=== PATIENT | female | born 1965 | race Two or more races ===

== ENCOUNTER 2021-08-30 22:58 | Emergency (ER) | payer MEDICAID, SELFPAY ==
--- NOTE | ~2021-08-30 | XR_ITS ---
EXAMINATION: XR CHEST CLINICAL INFORMATION: Right flank pain COMPARISON: 12.25.2018 TECHNIQUE: Frontal view of the chest was obtained. FINDINGS: Normal symmetric lung volumes. No parenchymal consolidation. No pleural effusion. No pneumothorax. Cardiomediastinal silhouette and pulmonary vascularity are within normal limits. No acute osseous abnormalities. XR/XR chest 1V IMPRESSION: Unremarkable examination.
[2021-08-30 23:27] VITALS: BP 179/64; PULSE 63; RESP 16; TEMP 36.6; O2SAT 98; BMI 26.4
--- NOTE | 2021-08-31 00:52 | ECG_ITS ---
Test Reason : BACK PAIN Blood Pressure : / mmHG Vent. Rate : 047 BPM Atrial Rate : 047 BPM P-R Int : 204 ms QRS Dur : 084 ms QT Int : 458 ms P-R-T Axes : 043 022 048 degrees QTc Int : 405 ms Sinus bradycardia first degree heart block Nonspecific T wave abnormality Abnormal ECG When compared with ECG of 04-SEP-2018 10:40, Nonspecific T wave abnormality now evident in Lateral leads Referred By: Maximilian Gibbons Electronically Signed By:SANJAY MCGUIRE
--- NOTE | 2021-08-31 00:53 | ED_ITS ---
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 Pain started 2 days ago, described as a dull aching pain localized to the right flank area pain described as constant moderate in severity 7/10, pain is worse with movement, no relieving factor, never had similar pain in the past, no other associated symptoms, no bloody urine, no frequency urination, no dysuria. Patient flew from [place] 2 days ago, decline lower extremity swelling or tenderness, no history of trauma or heavy lifting before the pain started. Related Data Allergies Allergy/AdvReac Type Severity Reaction Status Date / Time codeine [CODEINE] AdvReac Unknown TACHYCARDIA Unverified 08/11/21 14:38 Codeine Phosphate Allergy Unknown Uncoded 08/11/21 14:38 Review of Systems Review of Systems: All other systems are reviewed and are negative Constitutional: Reports as per HPI and Reports no additional constitutional complaints Eyes: Reports as per HPI and Reports no additional eye complaints Reports system reviewed and no additional complaints, except as documented Cardiovascular: Reports as per HPI and Reports no additional cardiovascular complaints Respiratory: Reports as per HPI and Reports no additional respiratory complaints Gastrointestinal: Reports as per HPI and Reports no additional gastrointestinal complaints Genitourinary: Reports no additional female genitourinary complaints Musculoskeletal: Reports no additional musculoskeletal complaints Skin/Breast: Reports system reviewed and no additional complaints, except as docu Psychiatric: Reports no additional psychiatric complaints Endocrine: Reports no additional endocrine complaints Hematologic/Lymphatic: Reports no additional hematologic/lymphatic complaints Allergic/Immunologic: Reports no additional allergic/immunologic complaints Reports system reviewed and no additional complaints, except as documented and Reports Abnormal speech present [facility] Social History Social History (System 08/11/21 @ 14:38 by Bernadette Holder) Advance Directives: No Advance Directives Information Provided: No Patient : No Physical Exam Vital Signs: Vital Signs: Last Vital Signs Temp 97.8 F 08/30/21 23:27 Pulse 63 08/30/21 23:27 Resp 16 08/30/21 23:27 BP 179/64 H 08/30/21 23:27 Pulse Ox 98 08/30/21 23:27 BMI result Body Mass Index 26.4 Vital signs have been reviewed as appeared to be correct. Blood pressure normal. Heart rate normal. Respiration rate normal. Temperature normal. Oxygen saturation normal. Appearance: Alert. Oriented X3. No acute distress. Head: Normal external exam. Normocephalic. Atraumatic. No Manning signs noted. No raccoon eyes noted Eyes: PERRLA. EOMI. Conjunctiva and sclera normal. Eyelids normal. ENT: TM's Normal. Pharynx normal. Uvula midline. Moist mucous membranes. No trismus noted. No drooling noted. No muffled voice noted. Neck: Normal inspection. Neck supple. FROM. No adenopathy. Thyroid Normal. No meningeal signs. No neck mass noted. CVS: Normal heart rate and rhythm. Heart sound normal. No murmurs noted. Pulses normal throughout. Respiratory: No respiratory distress. Painless inspiration. Breath sounds normal. No wheezes/rales/rhonchi noted. Chest nontender. No accessory muscle usage noted or decreased air movement noted. Abdomen: Soft and nontender. Bowel sounds normal in all 4 quadrants. No distention noted. No organomegaly noted. No visible injury noted. Back: No CVA tenderness. Full range of motion noted. Skin: Skin warm and dry. Normal skin color. Normal skin turgor. No rashes/ lesions/lacerations noted. Extremities: No lower extremity edema. Extremities exhibit normal range of motion. Extremities nontender. Neuro: Oriented X 3. Cranial nerve exam: II-XII are grossly intact No motor deficit. No sensory deficit. Reflexes normal. Course Course Course Narrative: Assessment and plan. 56-year-old female came in for evaluation for right flank pain, right-sided chest pain, patient had recent traveling from [place] 2 days ago then the pain started, however patient declined any lower extremity swelling or tenderness, EKG is unremarkable for acute ischemic change, labs including cardiac markers and D-dimer, UA are still pending, the case signed out to Dr. Guevara. Medical Decision Making Lab Data Result diagrams: 08/31/21 01:42 08/31/21 01:42 Labs: Lab Results 08/31/21 08/31/21 08/31/21 Range/Units 01:42 01:42 01:42 WBC 7.5 (4.8-10.8) X10*3/uL RBC 4.35 (4.20-5.50) X10*6/uL Hgb 12.5 (12.0-16.0) g/dl Hct 39.3 (37.0-47.0) % MCV 90.3 (80.0-98.0) fL MCH 28.7 (27.0-33.0) pg MCHC 31.8 (31.0-35.0) g/dl RDW 14.3 (11.0-16.0) % Plt Count 296 (160-400) X10*3/uL MPV 8.7 L (9.4-12.3) fL Immature Gran % (Auto) 0.1 (0.0-0.4) % Neut % (Auto) 47.9 (45-73) % Lymph % (Auto) 43.0 H (20-40) % [place] % (Auto) 6.8 (2-11) % Eos % (Auto) 1.9 (0-4) % Baso % (Auto) 0.3 (0-2) % Lymph # (Auto) 3.2 (1.2-4.9) X10*3/uL [place] # (Auto) 0.5 (0.1-1.2) X10*3/uL Eos # (Auto) 0.1 (0.0-0.4) X10*3/uL Baso # (Auto) 0.0 (0.0-0.2) X10*3/uL Abs Immat Gran (auto) 0.01 (0.00-0.03) X10*3/uL Absolute Neuts (auto) 3.6 (2.0-8.3) x10*3/uL Absolute Nucleated RBC 0.000 (0.0-0.012) X10*3/uL Nucleated RBC % (auto) 0.0 (0.0-0.2) /100WBC D-Dimer High Sensitivty 237 NG/ML Sodium 139 (135-145) mmol/L Potassium 3.7 (3.3-5.1) mmol/L Chloride 107 (96-108) mmol/L Carbon Dioxide 25 (22-29) mmol/L Anion Gap 11 L (12-20) BUN 12 (9-16) mg/dL Creatinine 0.82 (0.5-1.4) mg/dL Estim Creat Clear Calc 80.8 Estimated GFR > 60 Random Glucose 112 (60-115) mg/dL Calcium 9.3 (8.4-10.2) mg/dL Total Bilirubin 0.5 (0.0-1.0) mg/dL Direct Bilirubin 0.2 (0.0-0.5) mg/dL AST 17 (5-31) U/L ALT 21 (0-31) U/L Alkaline Phosphatase 72 (39-117) U/L Troponin I High Sens (<3.5-17.0) ng/L Total Protein 6.9 (6.5-8.0) g/dL Albumin 4.1 (3.5-5.0) g/dL Lipase 35 (8-78) U/L 08/31/21 Range/Units 01:42 WBC (4.8-10.8) X10*3/uL RBC (4.20-5.50) X10*6/uL Hgb (12.0-16.0) g/dl Hct (37.0-47.0) % MCV (80.0-98.0) fL MCH (27.0-33.0) pg MCHC (31.0-35.0) g/dl RDW (11.0-16.0) % Plt Count (160-400) X10*3/uL MPV (9.4-12.3) fL Immature Gran % (Auto) (0.0-0.4) % Neut % (Auto) (45-73) % Lymph % (Auto) (20-40) % [place] % (Auto) (2-11) % Eos % (Auto) (0-4) % Baso % (Auto) (0-2) % Lymph # (Auto) (1.2-4.9) X10*3/uL [place] # (Auto) (0.1-1.2) X10*3/uL Eos # (Auto) (0.0-0.4) X10*3/uL Baso # (Auto) (0.0-0.2) X10*3/uL Abs Immat Gran (auto) (0.00-0.03) X10*3/uL Absolute Neuts (auto) (2.0-8.3) x10*3/uL Absolute Nucleated RBC (0.0-0.012) X10*3/uL Nucleated RBC % (auto) (0.0-0.2) /100WBC D-Dimer High Sensitivty NG/ML Sodium (135-145) mmol/L Potassium (3.3-5.1) mmol/L Chloride (96-108) mmol/L Carbon Dioxide (22-29) mmol/L Anion Gap (12-20) BUN (9-16) mg/dL Creatinine (0.5-1.4) mg/dL Estim Creat Clear Calc Estimated GFR Random Glucose (60-115) mg/dL Calcium (8.4-10.2) mg/dL Total Bilirubin (0.0-1.0) mg/dL Direct Bilirubin (0.0-0.5) mg/dL AST (5-31) U/L ALT (0-31) U/L Alkaline Phosphatase (39-117) U/L Troponin I High Sens < 3.5 (<3.5-17.0) ng/L Total Protein (6.5-8.0) g/dL Albumin (3.5-5.0) g/dL Lipase (8-78) U/L ECG Data Attestation: I personally reviewed and interpreted this ECG as follows: Interpretation: Sinus bradycardia at 47 beats per minute, normal axis deviation, first-degree AV block, otherwise unremarkable intervals, nonspecific T-wave changes. Discharge Plan Discharge Clinical Impression: Muscle strain Patient Disposition: Home, Self-Care Instructions: Muscle Strain (ED), Musculoskeletal Pain (ED) Additional Instructions: 1. Recomendar el uso de Tylenol e ibuprofeno de venta nicki para controlar el dolor. 2. Seguimiento con mcconnell proveedor de atenci?n primaria el lunes por la ma?kevin para katt reevaluaci?n y manejo ambulatorio adicional. Regrese a la kenna de emergencias si los s?ntomas empeoran. Interventions: ED Discharge Assessment Last Done: 08/31/21 04:17 Discharge Date/Time: 08/31/21 04:17 Print Language: Surinamese
[2021-08-31 01:47] LABS: Basophils Percent Auto 0.3 % (0-2); Eosinophils Absolute Auto 0.1 X10*3/uL (0.0-0.4); Eosinophils Percent Auto 1.9 % (0-4); Hematocrit 39.3 % (37.0-47.0); Hemoglobin 12.5 g/dl (12.0-16.0); Imm Gran Abs Auto 0.01 X10*3/uL (0.00-0.03); Imm Gran Pct Auto 0.1 % (0.0-0.4); Lymphocytes Absolute Auto 3.2 X10*3/uL (1.2-4.9); MANUAL DIFF FLAG NO; Mean Corpuscular HGB Conc 31.8 g/dl (31.0-35.0); Mean Corpuscular Hemoglobin 28.7 pg (27.0-33.0); Mean Corpuscular Volume 90.3 fL (80.0-98.0); Mean Platelet Volume 8.7 fL (9.4-12.3); Monocytes Absolute Auto 0.5 X10*3/uL (0.1-1.2); Monocytes Percent Auto 6.8 % (2-11); Neutrophils Absolute Auto 3.6 x10*3/uL (2.0-8.3); Neutrophils Percent Auto 47.9 % (45-73); Platelet Count 296 X10*3/uL (160-400); Red Blood Count 4.35 X10*6/uL (4.20-5.50); Red Cell Distribution Width 14.3 % (11.0-16.0); White Blood Count 7.5 X10*3/uL (4.8-10.8)
[2021-08-31] MEDS: Ibuprofen 600 MG TABLET PO (01:47)
[2021-08-31 01:54] LABS: D Dimer High Sensitivity 237 NG/ML
[2021-08-31 02:09] LABS: Alanine Aminotransferase 21 U/L (0-31); Albumin Level 4.1 g/dL (3.5-5.0); Alkaline Phosphatase 72 U/L (39-117); Anion Gap 11 (12-20); Aspartate Amino Transferase 17 U/L (5-31); Bilirubin Direct 0.2 mg/dL (0.0-0.5); Bilirubin Total 0.5 mg/dL (0.0-1.0); Blood Urea Nitrogen 12 mg/dL (9-16); Calcium 9.3 mg/dL (8.4-10.2); Carbon Dioxide 25 mmol/L (22-29); Chloride 107 mmol/L (96-108); Creatinine Clr Calc Pharmacy 80.8; Estimated Glomerular Filt Rate > 60; Glucose Random 112 mg/dL (60-115); Lipase 35 U/L (8-78); Potassium 3.7 mmol/L (3.3-5.1); Sodium 139 mmol/L (135-145); Total Protein 6.9 g/dL (6.5-8.0)
[2021-08-31 02:12] LABS: Troponin-I High Sensitivity < 3.5 ng/L (<3.5-17.0)
[2021-08-31] MEDS: Lidocaine 4 % Patch ADH..PATCH 1 PATCH TRANSDERMA (04:10)
== END 2021-08-31 04:17 | disposition home or self-care (01) ==
PROVIDERS: Emergency Medicine; Emergency Provider Student in an Organized Health Care Education/Training Program
DX: S39.012A Strain of muscle, fascia and tendon of lower back, initial encounter (principal); X58.XXXA Exposure to other specified factors, initial encounter; Y93.9 Activity, unspecified; Y92.9 Unspecified place or not applicable; Y99.9 Unspecified external cause status
CPT/HCPCS: 36415; 71045; 80048; 80076; 83690; 84484; 85025; 85379; 93005; 99283

== ENCOUNTER 2021-10-22 17:35 | Emergency (ER) | payer MEDICAID, SELFPAY ==
--- NOTE | 2021-10-22 | ECG_ITS ---
Test Reason : cp Blood Pressure : / mmHG Vent. Rate : 060 BPM Atrial Rate : 060 BPM P-R Int : 182 ms QRS Dur : 084 ms QT Int : 428 ms P-R-T Axes : 004 004 025 degrees QTc Int : 428 ms Normal sinus rhythm Normal ECG When compared with ECG of 31-AUG-2021 01:24, Nonspecific T wave abnormality no longer evident in Lateral leads Referred By: Generic ED Physician Electronically Signed By:Mannie Taylor
--- NOTE | ~2021-10-22 | XR_ITS ---
EXAMINATION: XR CHEST CLINICAL INFORMATION: Chest pain COMPARISON: Previous chest x-ray most recent August 2021 TECHNIQUE: Frontal view of the chest was obtained. FINDINGS: The cardiac and mediastinal contours are stable. The lungs are clear. There is no pleural effusion or pneumothorax. There are degenerative changes of the spine. XR/XR chest 1V IMPRESSION: Unremarkable examination.
[2021-10-22 18:38] VITALS: BP 152/87; PULSE 64; RESP 18; TEMP 36.5; O2SAT 98; BMI 31.3
[2021-10-22 21:13] LABS: MANUAL DIFF FLAG NO
[2021-10-22 21:14] LABS: Basophils Percent Auto 0.3 % (0-2); Eosinophils Absolute Auto 0.2 X10*3/uL (0.0-0.4); Hemoglobin 12.5 g/dl (12.0-16.0); Imm Gran Abs Auto 0.03 X10*3/uL (0.00-0.03); Imm Gran Pct Auto 0.3 % (0.0-0.4); Lymphocytes Absolute Auto 3.2 X10*3/uL (1.2-4.9); Lymphocytes Percent Auto 33.1 % (20-40); Mean Corpuscular HGB Conc 32.1 g/dl (31.0-35.0); Mean Corpuscular Hemoglobin 28.9 pg (27.0-33.0); Mean Corpuscular Volume 90.3 fL (80.0-98.0); Mean Platelet Volume 9.3 fL (9.4-12.3); Monocytes Absolute Auto 0.7 X10*3/uL (0.1-1.2); Monocytes Percent Auto 7.3 % (2-11); Neutrophils Absolute Auto 5.5 x10*3/uL (2.0-8.3); Platelet Count 294 X10*3/uL (160-400); Red Blood Count 4.32 X10*6/uL (4.20-5.50); Red Cell Distribution Width 13.9 % (11.0-16.0); White Blood Count 9.7 X10*3/uL (4.8-10.8)
[2021-10-22 21:29] LABS: Anion Gap 12 (12-20); Blood Urea Nitrogen 12 mg/dL (9-16); Calcium 9.4 mg/dL (8.4-10.2); Carbon Dioxide 26 mmol/L (22-29); Chloride 109 mmol/L (96-108); Estimated Glomerular Filt Rate > 60; Glucose Random 107 mg/dL (60-115); Potassium 4.2 mmol/L (3.3-5.1); Sodium 143 mmol/L (135-145)
[2021-10-22 21:34] VITALS: BP 148/82; PULSE 62; RESP 14; TEMP 36.6; O2SAT 98
[2021-10-22 21:35] LABS: Troponin-I High Sensitivity < 3.5 ng/L (<3.5-17.0)
--- NOTE | 2021-10-22 21:59 | ED_ITS ---
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 Left-sided neck pain radiating down to the left shoulder for 8 years on and off, increased with turning the head to the right side or lifting the arm above the head, pain feels like electrical shooting pain to the left upper extremity. Relieved by sitting still, no other associated symptoms like nausea or vomiting or fever or chills. Patient also been complaining of left-sided chest pain localized to the left side of the chest with no radiation, pain is intermittent stay for about 2 minutes on and off started about 8 years ago, patient had a previous cardiology evaluation in [place] , no relieving factor or aggravating factor. No recent travel, no lower extremity swelling or tenderness. 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 Past medical history is significant for hypothyroidism, hypertension. Patient recently quit smoking. Related Data Allergies Allergy/AdvReac Type Severity Reaction Status Date / Time codeine [CODEINE] AdvReac Unknown TACHYCARDIA Verified 10/22/21 18:38 Codeine Phosphate Allergy Unknown Unknown Uncoded 10/22/21 18:38 Review of Systems Review of Systems: All other systems are reviewed and are negative Constitutional: Reports as per HPI and Reports no additional constitutional complaints Eyes: Reports as per HPI and Reports no additional eye complaints Reports system reviewed and no additional complaints, except as documented Cardiovascular: Reports as per HPI and Reports no additional cardiovascular complaints Respiratory: Reports as per HPI and Reports no additional respiratory complaints Gastrointestinal: Reports as per HPI and Reports no additional gastrointestinal complaints Genitourinary: Reports no additional female genitourinary complaints Musculoskeletal: Reports no additional musculoskeletal complaints Skin/Breast: Reports system reviewed and no additional complaints, except as docu Psychiatric: Reports no additional psychiatric complaints Endocrine: Reports no additional endocrine complaints Hematologic/Lymphatic: Reports no additional hematologic/lymphatic complaints Allergic/Immunologic: Reports no additional allergic/immunologic complaints Reports system reviewed and no additional complaints, except as documented and Reports Abnormal speech present [facility] Social History Social History Advance Directives: No Advance Directives Information Provided: No Physical Exam Vital Signs: Vital Signs: Last Vital Signs Temp 97.8 F 10/22/21 21:34 Pulse 62 10/22/21 21:34 Resp 14 10/22/21 21:34 BP 148/82 H 10/22/21 21:34 Pulse Ox 98 10/22/21 21:34 BMI result Body Mass Index 31.3 Vital signs have been reviewed as appeared to be correct. Blood pressure normal. Heart rate normal. Respiration rate normal. Temperature normal. Oxygen saturation normal. Appearance: Alert. Oriented X3. No acute distress. Head: Normal external exam. Normocephalic. Atraumatic. No Manning signs noted. No raccoon eyes noted Eyes: PERRLA. EOMI. Conjunctiva and sclera normal. Eyelids normal. ENT: TM's Normal. Pharynx normal. Uvula midline. Moist mucous membranes. No trismus noted. No drooling noted. No muffled voice noted. Neck: Normal inspection. Neck supple. FROM. No adenopathy. Increased left-sided neck pain radiating to the left shoulder if she turns her head to the right side or elevate her left extremities above her head. Thyroid Normal. No meningeal signs. No neck mass noted. CVS: Normal heart rate and rhythm. Heart sound normal. No murmurs noted. Pulses normal throughout. Respiratory: No respiratory distress. Painless inspiration. Breath sounds normal. No wheezes/rales/rhonchi noted. Chest nontender. No accessory muscle usage noted or decreased air movement noted. Abdomen: Soft and nontender. Bowel sounds normal in all 4 quadrants. No distention noted. No organomegaly noted. No visible injury noted. Back: No CVA tenderness. Full range of motion noted. Skin: Skin warm and dry. Normal skin color. Normal skin turgor. No rashes/lesions/lacerations noted. Extremities: No lower extremity edema. Extremities exhibit normal range of motion. Extremities nontender. Neuro: Oriented X 3. Cranial nerve exam: II-XII are grossly intact No motor deficit. No sensory deficit. Reflexes normal. Course Course Course Narrative: Assessment and plan. Came in for evaluation of left shoulder pain radiating to the left upper extremities pain is likely related to cervical radiculopathy on the left side. Left-sided chest pain with unremarkable EKG and labs and chest x-ray. MDM - Chest Pain Medical Records Data Attestation: I reviewed the patient's medical records. Lab Data Attestation: I reviewed the patient's lab results. Result diagrams: 10/22/21 21:07 10/22/21 21:07 Labs: Lab Results 10/22/21 10/22/21 10/22/21 Range/Units 21:07 21:07 21:07 WBC 9.7 (4.8-10.8) X10*3/uL RBC 4.32 (4.20-5.50) X10*6/uL Hgb 12.5 (12.0-16.0) g/dl Hct 39.0 (37.0-47.0) % MCV 90.3 (80.0-98.0) fL MCH 28.9 (27.0-33.0) pg MCHC 32.1 (31.0-35.0) g/dl RDW 13.9 (11.0-16.0) % Plt Count 294 (160-400) X10*3/uL MPV 9.3 L (9.4-12.3) fL Immature Gran % (Auto) 0.3 (0.0-0.4) % Neut % (Auto) 57.0 (45-73) % Lymph % (Auto) 33.1 (20-40) % [place] % (Auto) 7.3 (2-11) % Eos % (Auto) 2.0 (0-4) % Baso % (Auto) 0.3 (0-2) % Lymph # (Auto) 3.2 (1.2-4.9) X10*3/uL [place] # (Auto) 0.7 (0.1-1.2) X10*3/uL Eos # (Auto) 0.2 (0.0-0.4) X10*3/uL Baso # (Auto) 0.0 (0.0-0.2) X10*3/uL Abs Immat Gran (auto) 0.03 (0.00-0.03) X10*3/uL Absolute Neuts (auto) 5.5 (2.0-8.3) x10*3/uL Absolute Nucleated RBC 0.000 (0.0-0.012) X10*3/uL Nucleated RBC % (auto) 0.0 (0.0-0.2) /100WBC Sodium 143 (135-145) mmol/L Potassium 4.2 (3.3-5.1) mmol/L Chloride 109 H (96-108) mmol/L Carbon Dioxide 26 (22-29) mmol/L Anion Gap 12 (12-20) BUN 12 (9-16) mg/dL Creatinine 0.78 (0.5-1.4) mg/dL Estim Creat Clear Calc 92.0 Estimated GFR > 60 Random Glucose 107 (60-115) mg/dL Calcium 9.4 (8.4-10.2) mg/dL Troponin I High Sens < 3.5 (<3.5-17.0) ng/L Imaging Data Chest x-ray: Attestation: I personally reviewed and interpreted this imaging study as follows: Radiologist's impression: No acute intrathoracic pathology. ECG Data ECG #1: Attestation: I personally reviewed and interpreted this ECG as follows: Interpretation: Normal sinus rhythm at 60 beats per minutes, normal axis deviation, normal intervals, no changes from previous EKG. Discharge Plan Discharge Clinical Impression: Chest pain, Cervical radiculopathy Patient Disposition: Home, Self-Care Instructions: Cervical Radiculopathy (ED) [facility]
== END 2021-10-23 00:10 | disposition home or self-care (01) ==
PROVIDERS: Emergency Provider Emergency Medicine
DX: R07.9 Chest pain, unspecified (principal); M54.12 Radiculopathy, cervical region; I10 Essential (primary) hypertension; E78.5 Hyperlipidemia, unspecified
CPT/HCPCS: 36415; 71045; 80048; 84484; 85025; 93005; 99283; 99284

== ENCOUNTER 2021-10-24 07:26 | Outpatient (REF) | payer MEDICAID, SELFPAY ==
--- NOTE | 2021-10-24 | PFT_ITS ---
FLOWS: FEV1 93% of predicted at 2.75 L. FVC 89% of predicted at 3.5 L. FEV1 to FVC ratio of 0.85. No bronchodilator response. LUNG VOLUMES: Total lung capacity 92% of predicted at 5.08 L. Residual volume 87% of predicted at 1.82 L. Slow vital capacity 95% of predicted at 3.26 L. Expiratory reserve volume 73% of predicted at 0.76 L. Diffusion capacity is mildly decreased. IMPRESSION: No obstructive or restrictive ventilatory defect. No bronchodilator response. Decreased diffusion capacity suggests emphysema. Juan Villafana MD AP/MODL / [id number]
== END 2021-10-24 07:27 | disposition home or self-care (01) ==
LOC: HO.RESP 07:26
PROVIDERS: PCP Internal Medicine; Visit Provider Internal Medicine
DX: R06.00 Dyspnea, unspecified (principal); F17.200 Nicotine dependence, unspecified, uncomplicated
CPT/HCPCS: 94060; 94727; 94729

== ENCOUNTER 2021-10-24 10:57 | Emergency (ER) | payer MEDICAID, SELFPAY ==
--- NOTE | ~2021-10-24 | XR_ITS ---
EXAMINATION: XR CHEST CLINICAL INFORMATION: Chest pain COMPARISON: Previous chest x-ray most recent from earlier this month TECHNIQUE: Frontal view of the chest was obtained. FINDINGS: The cardiac and mediastinal contours are stable. The lungs are clear. There is no pleural effusion or pneumothorax. There are degenerative changes of the spine. XR/XR chest 1V IMPRESSION: Unremarkable examination.
--- NOTE | 2021-10-24 10:59 | ECG_ITS ---
Test Reason : cp Blood Pressure : / mmHG Vent. Rate : 068 BPM Atrial Rate : 068 BPM P-R Int : 170 ms QRS Dur : 082 ms QT Int : 404 ms P-R-T Axes : 058 033 039 degrees QTc Int : 429 ms Normal sinus rhythm Normal ECG When compared with ECG of 22-OCT-2021 19:54, No significant change was found Referred By: Generic ED Physician Electronically Signed By:Mannie Taylor
[2021-10-24 11:02] VITALS: BP 152/82; PULSE 66; RESP 20; TEMP 36.8; O2SAT 99; BMI 31.3
[2021-10-24 11:57] LABS: MANUAL DIFF FLAG NO
[2021-10-24 12:03] LABS: Basophils Percent Auto 0.4 % (0-2); Eosinophils Absolute Auto 0.1 X10*3/uL (0.0-0.4); Eosinophils Percent Auto 1.4 % (0-4); Hematocrit 39.7 % (37.0-47.0); Hemoglobin 12.5 g/dl (12.0-16.0); Imm Gran Abs Auto 0.03 X10*3/uL (0.00-0.03); Imm Gran Pct Auto 0.4 % (0.0-0.4); Lymphocytes Absolute Auto 2.6 X10*3/uL (1.2-4.9); Lymphocytes Percent Auto 33.7 % (20-40); Mean Corpuscular HGB Conc 31.5 g/dl (31.0-35.0); Mean Corpuscular Hemoglobin 28.6 pg (27.0-33.0); Mean Corpuscular Volume 90.8 fL (80.0-98.0); Mean Platelet Volume 9.4 fL (9.4-12.3); Monocytes Absolute Auto 0.6 X10*3/uL (0.1-1.2); Monocytes Percent Auto 7.2 % (2-11); Neutrophils Absolute Auto 4.4 x10*3/uL (2.0-8.3); Neutrophils Percent Auto 56.9 % (45-73); Platelet Count 302 X10*3/uL (160-400); Red Blood Count 4.37 X10*6/uL (4.20-5.50); Red Cell Distribution Width 13.9 % (11.0-16.0); White Blood Count 7.8 X10*3/uL (4.8-10.8)
[2021-10-24 12:17] LABS: Alanine Aminotransferase 10 U/L (0-31); Albumin Level 4.1 g/dL (3.5-5.0); Alkaline Phosphatase 83 U/L (39-117); Anion Gap 12 (12-20); Aspartate Amino Transferase 15 U/L (5-31); Bilirubin Direct 0.3 mg/dL (0.0-0.5); Bilirubin Total 0.7 mg/dL (0.0-1.0); Blood Urea Nitrogen 10 mg/dL (9-16); Calcium 9.8 mg/dL (8.4-10.2); Carbon Dioxide 28 mmol/L (22-29); Chloride 106 mmol/L (96-108); Creatinine Clr Calc Pharmacy 90.8; Estimated Glomerular Filt Rate > 60; Glucose Random 115 mg/dL (60-115); Lipase 26 U/L (8-78); Magnesium 2.1 mg/dL (1.6-2.6); Potassium 4.3 mmol/L (3.3-5.1); Sodium 142 mmol/L (135-145); Total Protein 6.9 g/dL (6.5-8.0)
[2021-10-24 12:23] LABS: Troponin-I High Sensitivity < 3.5 ng/L (<3.5-17.0)
[2021-10-24 12:28] LABS: Prothrombin Time 11.7 SEC (9.9-13.0)
--- NOTE | 2021-10-24 12:59 | ED_ITS ---
HPI - Chest Pain General Chief Complaint: Chest Pain Stated Complaint: chest pain/diff. breathing Time Seen by Provider: 10/24/21 11:20 Source: patient, old records reviewed and historic interpreter Mode of arrival: ambulatory Limitations: no limitations History of Present Illness MD complaint: chest pain Pertinent past history: other (prior ?loop recorder removed 2013) Onset (ago): year(s) (8 years ago but notes recently much worse) Timing of current episode: episodic Prior episodes: Yes Onset: during rest and during exertion Pain location: left chest Pain radiation: none Severity: moderate Quality: sharp (well localized left chest area) Relieving factors: nothing Exacerbating factors: nothing Context: other (states she has always had pain at her loop recorder site) Associated symptoms: dyspnea (ongoing since August ) and other (dizziness) Treatment prior to arrival: other (states she had pulm function tests today ) Related Data Previous Rx's Medication Instructions Recorded cyclobenzaprine 10 mg tablet 10 mg PO TID PRN #14 tab 10/24/21 hydrocodone 5 mg-acetaminophen 325 1 tab PO Q6H PRN #4 tab 10/24/21 mg tablet Allergies Allergy/AdvReac Type Severity Reaction Status Date / Time codeine [CODEINE] AdvReac Unknown TACHYCARDIA Verified 10/24/21 11:01 Codeine Phosphate Allergy Unknown Unknown Uncoded 10/24/21 11:01 Review of Systems Review of Systems: Constitutional : No Weight loss, No Fever, No Chills ENT/Mouth : No sore throat, No Rhinorrhea Eyes: No Eye Pain, No Swelling Cardiovascular : pos Chest Pain, pos SOB, pos Dyspnea on Exertion, No Orthopnea, No Edema, No Palpitations Respiratory : No Cough, No Sputum Gastrointestinal : no Nausea, No Vomiting, No Diarrhea, No abdominal Pain, No Hematochezia, No Melena Genitourinary : No Dysuria, No Urinary Frequency Musculoskeletal : No joint pain, No Myalgias, No Joint Swelling Skin : No Skin Lesions, No rash Neuro : No Weakness, No Numbness, pos Dizziness, No Headache Psych : No Anxiety/Panic, No Depression Heme/Lymph: No Bruising, No Lymphadenopathy Endocrine : No Polyuria, No Polydipsia All other systems reviewed and are negative PMFSH Past Medical History Attestation statement: The following information was validated with the patient. Medical History Asthma Bradycardia HTN (hypertension) Hyperlipidemia Hypothyroidism Social History Social History (Updated 10/24/21 @ 13:43 by Becky Hoang DO) Patient Tobacco Use Status: Never used Tobacco Advance Directives: No Advance Directives Information Provided: Yes Physical Exam Vital Signs: Vital Signs: Last Vital Signs Temp 97 F 10/24/21 14:06 Pulse 55 10/24/21 14:06 Resp 16 10/24/21 14:06 BP 135/76 10/24/21 14:06 Pulse Ox 100 10/24/21 14:06 BMI result Body Mass Index 31.3 Appearance: Alert. Oriented X3. No acute distress. Eyes: Pupils equal, round and reactive to light. ENT: Pharynx normal. Neck: Normal inspection. Neck supple. CVS: Normal heart rate and rhythm. Pulses normal. Chest wall: appears normal Respiratory: No respiratory distress. Breath sounds normal. Abdomen: Soft and non-tender. Skin: Skin warm and dry. Normal skin color. Normal skin turgor. Extremities: No lower extremity edema. No calf ttp Neuro: Oriented X 3. No motor deficit. No sensory deficit. Course Course Course Narrative: troponins flat over 48 hour period with similar presentation - no sign of PE no tachycardia no hypoxia not pleuritic no signs of DVT doubt PE - stable for DC with repeat trop flat and EKG nonischemic pain free MDM - Chest Pain MDM Narrative Medical decision making narrative: 56 yo female with hx of HTN, HLD, asthma, bradycardia ?loop recorder removed in 2013 since then she notes 8 years of pain at the site. She comes in today due to pain again at the site. She also had NOGUEIRA since August and had pulm function tests today. Her symptoms seem unusual given the duration and pain localized for 8 years at loop recorder site. She is not toxic, no hypoxia/tachycardia/signs of DVT to suggest PE. She denies it is reproduceable and I do not appreciate any overlying areas on her chest wall. At this time troponin x 2. EKG, CXR ordered and PO pain medications. She notes she has an upcoming appointment this month with her starch and prosize mixer. Lab Data Result diagrams: 10/24/21 11:48 10/24/21 11:48 Labs: Lab Results 03/04/22 03/04/22 03/04/22 Range/Units 11:48 11:48 11:48 WBC 7.8 (4.8-10.8) X10*3/uL RBC 4.37 (4.20-5.50) X10*6/uL Hgb 12.5 (12.0-16.0) g/dl Hct 39.7 (37.0-47.0) % MCV 90.8 (80.0-98.0) fL MCH 28.6 (27.0-33.0) pg MCHC 31.5 (31.0-35.0) g/dl RDW 13.9 (11.0-16.0) % Plt Count 302 (160-400) X10*3/uL MPV 9.4 (9.4-12.3) fL Immature Gran % (Auto) 0.4 (0.0-0.4) % Neut % (Auto) 56.9 (45-73) % Lymph % (Auto) 33.7 (20-40) % Worth % (Auto) 7.2 (2-11) % Eos % (Auto) 1.4 (0-4) % Baso % (Auto) 0.4 (0-2) % Lymph # (Auto) 2.6 (1.2-4.9) X10*3/uL Worth # (Auto) 0.6 (0.1-1.2) X10*3/uL Eos # (Auto) 0.1 (0.0-0.4) X10*3/uL Baso # (Auto) 0.0 (0.0-0.2) X10*3/uL Abs Immat Gran (auto) 0.03 (0.00-0.03) X10*3/uL Absolute Neuts (auto) 4.4 (2.0-8.3) x10*3/uL Absolute Nucleated RBC 0.000 (0.0-0.012) X10*3/uL Nucleated RBC % (auto) 0.0 (0.0-0.2) /100WBC PT 11.7 (9.9-13.0) SEC INR 1.0 (0.9-1.1) Sodium 142 (135-145) mmol/L Potassium 4.3 (3.3-5.1) mmol/L Chloride 106 (96-108) mmol/L Carbon Dioxide 28 (22-29) mmol/L Anion Gap 12 (12-20) BUN 10 (9-16) mg/dL Creatinine 0.79 (0.5-1.4) mg/dL Estim Creat Clear Calc 90.8 Estimated GFR > 60 Random Glucose 115 (60-115) mg/dL Calcium 9.8 (8.4-10.2) mg/dL Magnesium 2.1 (1.6-2.6) mg/dL Total Bilirubin 0.7 (0.0-1.0) mg/dL Direct Bilirubin 0.3 (0.0-0.5) mg/dL AST 15 (5-31) U/L ALT 10 (0-31) U/L Alkaline Phosphatase 83 (39-117) U/L Troponin I High Sens (<3.5-17.0) ng/L Total Protein 6.9 (6.5-8.0) g/dL Albumin 4.1 (3.5-5.0) g/dL Lipase 26 (8-78) U/L 10/24/21 10/24/21 Range/Units 11:48 13:48 WBC (4.8-10.8) X10*3/uL RBC (4.20-5.50) X10*6/uL Hgb (12.0-16.0) g/dl Hct (37.0-47.0) % MCV (80.0-98.0) fL MCH (27.0-33.0) pg MCHC (31.0-35.0) g/dl RDW (11.0-16.0) % Plt Count (160-400) X10*3/uL MPV (9.4-12.3) fL Immature Gran % (Auto) (0.0-0.4) % Neut % (Auto) (45-73) % Lymph % (Auto) (20-40) % Worth % (Auto) (2-11) % Eos % (Auto) (0-4) % Baso % (Auto) (0-2) % Lymph # (Auto) (1.2-4.9) X10*3/uL Worth # (Auto) (0.1-1.2) X10*3/uL Eos # (Auto) (0.0-0.4) X10*3/uL Baso # (Auto) (0.0-0.2) X10*3/uL Abs Immat Gran (auto) (0.00-0.03) X10*3/uL Absolute Neuts (auto) (2.0-8.3) x10*3/uL Absolute Nucleated RBC (0.0-0.012) X10*3/uL Nucleated RBC % (auto) (0.0-0.2) /100WBC PT (9.9-13.0) SEC INR (0.9-1.1) Sodium (135-145) mmol/L Potassium (3.3-5.1) mmol/L Chloride (96-108) mmol/L Carbon Dioxide (22-29) mmol/L Anion Gap (12-20) BUN (9-16) mg/dL Creatinine (0.5-1.4) mg/dL Estim Creat Clear Calc Estimated GFR Random Glucose (60-115) mg/dL Calcium (8.4-10.2) mg/dL Magnesium (1.6-2.6) mg/dL Total Bilirubin (0.0-1.0) mg/dL Direct Bilirubin (0.0-0.5) mg/dL AST (5-31) U/L ALT (0-31) U/L Alkaline Phosphatase (39-117) U/L Troponin I High Sens < 3.5 < 3.5 (<3.5-17.0) ng/L Total Protein (6.5-8.0) g/dL Albumin (3.5-5.0) g/dL Lipase (8-78) U/L ECG Data ECG #1: Attestation: I personally reviewed and interpreted this ECG as follows: ECG interpretation date: 10/24/21 ECG interpretation time: 12:59 Interpretation: Rate: 68 Rhythm: NSR [place]: normal Normal P waves. Normal ADRIANO. Normal QRS complex. ST T wave : nonspecific no EVA qTC: normal prior studies: no acute ischemia The study has been interpreted contemporaneously by me. . Discharge Plan Discharge Clinical Impression: Atypical chest pain Patient Disposition: Home, Self-Care Instructions: Chest Pain (ED) Additional Instructions: return to ED for any worsening symptoms or concerns negative heart markers stable for DC please follow up with your heart doctor Prescriptions: New cyclobenzaprine 10 mg tablet 10 mg PO TID PRN (Reason: muscle spasm) Qty: 14 0RF hydrocodone-acetaminophen 5-325 mg tablet 1 tab PO Q6H PRN (Reason: pain) Qty: 4 0RF Interventions: ED Discharge Assessment Last Done: 10/24/21 14:50 Discharge Date/Time: 10/24/21 14:50 Print Language: Yakut
[2021-10-24] MEDS: Cyclobenzaprine HCl 10 MG TABLET PO (13:44)
[2021-10-24] MEDS: HYDROcodone Bit/Acetam 5/325 TABLET 1 TAB PO (13:44)
[2021-10-24 14:06] VITALS: BP 135/76; PULSE 55; RESP 16; TEMP 36.1; O2SAT 100
[2021-10-24 14:28] LABS: Troponin-I High Sensitivity < 3.5 ng/L (<3.5-17.0)
== END 2021-10-24 14:50 | disposition home or self-care (01) ==
PROVIDERS: Emergency Provider Emergency Medicine
DX: R07.89 Other chest pain (principal); R06.02 Shortness of breath; R42 Dizziness and giddiness; Z79.899 Other long term (current) drug therapy
CPT/HCPCS: 36415; 71045; 80048; 80076; 83690; 83735; 84484; 85025; 85610; 93005; 99283; 99284

== ENCOUNTER 2021-10-31 07:52 | Outpatient (REF) | payer MEDICAID, SELFPAY ==
--- NOTE | ~2021-10-31 | MM_ITS ---
EXAMINATION: MM SCREENING DIGITAL BREAST TOMOSYNTHESIS, BILATERAL CLINICAL INFORMATION: Screening. Asymptomatic. The lifetime risk of breast cancer based on the Tyrer-Cuzick Model is 6%. COMPARISON: Mammography: 03/30/2018 02/05/2018; outside exam 11/20/2015 ([place], [place]). TECHNIQUE: Digital breast tomosynthesis is performed in both the craniocaudal and mediolateral oblique views along with computer-aided detection (CAD). Synthesized 2D images are generated from the tomosynthesis. FINDINGS: There are scattered areas of fibroglandular density (ACR BI-RADS breast composition Category b). There are no significant masses, abnormal calcifications, or other abnormalities. Parenchymal pattern is similar to prior studies. Scattered fibronodular densities are stable. There is no developing density or architectural abnormality. No significant changes. MM/MM tomosynthesis screening BI IMPRESSION: No mammographic evidence of malignancy. ASSESSMENT: BI-RADS 2: Benign RECOMMENDATION: Routine annual mammography screening. This patient's information was entered into a reminder system with a target due date for their next mammogram.
== END 2021-10-31 07:53 | disposition home or self-care (01) ==
LOC: HO.MAMMO 07:52
PROVIDERS: PCP Internal Medicine; Visit Provider Internal Medicine
DX: Z12.31 Encounter for screening mammogram for malignant neoplasm of breast (principal)
CPT/HCPCS: 77063; 77067

== ENCOUNTER 2022-02-28 09:32 | Outpatient (REF) | payer MEDICAID, SELFPAY ==
[2022-02-28 10:37] LABS: Free T4 (Free Thyroxine) 1.61 ng/dL (0.71-1.85); Thyroid Stimulating Hormone 0.03 uIU/mL (0.32-4.0)
== END 2022-02-28 09:33 | disposition home or self-care (01) ==
LOC: HO.LAB 09:32
PROVIDERS: PCP Internal Medicine; Visit Provider Internal Medicine Endocrinology, Diabetes & Metabolism
DX: E03.9 Hypothyroidism, unspecified (principal)
CPT/HCPCS: 36415; 84439; 84443

== ENCOUNTER → 2022-03-10 10:32 | Outpatient (BNVA) | payer MEDICAID, SELFPAY | PROVIDERS: PCP Internal Medicine; Visit Provider Internal Medicine Endocrinology, Diabetes & Metabolism | DX: E03.9 Hypothyroidism, unspecified (principal) | CPT/HCPCS: 99202 ==

== ENCOUNTER → 2022-09-22 09:06 | Outpatient (BNVA) | payer MEDICAID, SELFPAY | PROVIDERS: PCP Internal Medicine; Visit Provider Internal Medicine | DX: R13.10 Dysphagia, unspecified (principal); Z86.010 Personal history of colon polyps | CPT/HCPCS: 99202 ==

== ENCOUNTER 2022-10-09 07:00 | Outpatient (REF) | payer MEDICAID, SELFPAY ==
[2022-10-09 07:33] LABS: Hematocrit 39.5 % (37.0-47.0); Hemoglobin 12.7 g/dl (12.0-16.0); Mean Corpuscular HGB Conc 32.2 g/dl (31.0-35.0); Mean Corpuscular Hemoglobin 28.3 pg (27.0-33.0); Mean Corpuscular Volume 88.2 fL (80.0-98.0); Mean Platelet Volume 9.3 fL (9.4-12.3); Platelet Count 316 X10*3/uL (160-400); Red Blood Count 4.48 X10*6/uL (4.20-5.50); Red Cell Distribution Width 14.1 % (11.0-16.0); White Blood Count 8.2 X10*3/uL (4.8-10.8)
[2022-10-09 08:17] LABS: Free T4 (Free Thyroxine) 1.15 ng/dL (0.71-1.85); Thyroid Stimulating Hormone 0.75 uIU/mL (0.32-4.0)
[2022-10-13 10:43] LABS: Thyroid Peroxidase Antibodies >900 IU/mL (<9)
== END 2022-10-09 07:01 | disposition home or self-care (01) ==
LOC: HO.LAB 07:00
PROVIDERS: Internal Medicine; PCP Internal Medicine; Visit Provider Internal Medicine Endocrinology, Diabetes & Metabolism
DX: R13.10 Dysphagia, unspecified (principal); E03.9 Hypothyroidism, unspecified
CPT/HCPCS: 36415; 84439; 84443; 85027; 86376; 99212

== ENCOUNTER 2022-10-15 21:49 | Emergency (ER) | payer MEDICAID, SELFPAY ==
[2022-10-15 21:59] VITALS: BP 148/62; PULSE 67; RESP 16; TEMP 36.4; O2SAT 98; BMI 33.0
[2022-10-15 22:44] LABS: Hematocrit 39.3 % (37.0-47.0); Hemoglobin 12.6 g/dl (12.0-16.0); Mean Corpuscular HGB Conc 32.1 g/dl (31.0-35.0); Mean Corpuscular Volume 87.3 fL (80.0-98.0); Mean Platelet Volume 8.8 fL (9.4-12.3); Platelet Count 312 X10*3/uL (160-400); Red Cell Distribution Width 13.9 % (11.0-16.0); White Blood Count 10.1 X10*3/uL (4.8-10.8)
[2022-10-15 22:56] LABS: Anion Gap 13 (12-20); Blood Urea Nitrogen 15 mg/dL (9-16); Calcium 9.4 mg/dL (8.4-10.2); Carbon Dioxide 26 mmol/L (22-29); Chloride 107 mmol/L (96-108); Creatinine Clr Calc Pharmacy 93.3; Estimated Glomerular Filt Rate > 60; Glucose Random 113 mg/dL (60-115); Potassium 3.7 mmol/L (3.3-5.1); Sodium 142 mmol/L (135-145)
[2022-10-15 23:06] LABS: Troponin-I High Sensitivity < 3.5 ng/L (<3.5-17.0)
[2022-10-16 02:44] VITALS: BP 149/82; PULSE 60; RESP 16; TEMP 36.7; O2SAT 98
[2022-10-16 03:45] VITALS: BP 139/83; PULSE 59; RESP 18; TEMP 36.7; O2SAT 97
--- NOTE | 2022-10-16 06:38 | ED.HA ---
HPI - Headache General Chief Complaint: Headache Stated Complaint: elevated bp,headache, Time Seen by Provider: 10/16/22 06:37 Source: patient Mode of arrival: ambulatory Limitations: no limitations History of Present Illness HPI Narrative: 57-year-old female presents to the emergency room with multiple complaints. She states she has had chronic issues with soft vagina send has an endoscopy scheduled in November and another test in October. She states she cannot wait for this she states she feels dizzy she states she cannot eat and has a headache. She denies any fevers chills has any falls or injuries. MD elicited complaint: headache Related Data Home Medications Medication Instructions Recorded Confirmed amlodipine 5 mg tablet 5 mg PO DAILY 03/10/22 atorvastatin 10 mg tablet 10 mg PO DAILY 03/10/22 cholecalciferol (vitamin D3) 25 25 mcg PO DAILY 03/10/22 mcg (1,000 unit) tablet cyanocobalamin (vitamin B-12) 1,000 mcg PO DAILY 03/10/22 1,000 mcg tablet lisinopril 20 mg tablet 20 mg PO DAILY 03/10/22 omeprazole 40 mg capsule,delayed 40 mg PO QPM 03/10/22 release Previous Rx's Medication Instructions Recorded cyclobenzaprine 10 mg tablet 10 mg PO TID PRN muscle spasm #14 10/24/21 tabs hydrocodone 5 mg-acetaminophen 325 1 tab PO Q6H PRN pain #4 tabs 10/24/21 mg tablet levothyroxine 125 mcg tablet 125 mcg PO DAILY #30 tabs 09/07/22 peg 3350-electrolytes 236 240 ml PO Q10M colonoscopy #4,000 09/22/22 gram-22.74 gram-6.74 gram-5.86 mL gram solution (Golytely) metoclopramide HCl 10 mg tablet 10 mg PO Q6H PRN nausea and 10/16/22 (Reglan) vomiting #30 tabs Allergies Allergy/AdvReac Type Severity Reaction Status Date / Time codeine [CODEINE] AdvReac Unknown TACHYCARDIA Verified 10/15/22 22:04 Codeine Phosphate Allergy Unknown Unknown Uncoded 10/15/22 22:04 Review of Systems Review of Systems: Review of systems: General: Patient denies any fever chills recent illness or falls Musculoskeletal: Denies back pain or body aches or other injuries HEENT: headache denies, runny nose, ear pain Respiratory: denies shortness of breath, cough Cardiovascular: no chest pain or palpitations : denies dysuria, frequency Abdomen: no nausea vomiting denies abdominal pain Extremities: no swelling, no pain Skin: no diaphoresis Yes all other systems are reviewed and are negative PMFSH Past Medical History Medical History Asthma Bradycardia HTN (hypertension) Hyperlipidemia Hypothyroidism Hypothyroidism Surgical History History of left cataract surgery History of right cataract surgery History of tubal ligation Family History Family History Mother AD (Alzheimer's disease) Father Kidney disease Social History Social History Alcohol intake: never Patient Tobacco Use Status: Former Tobacco user Advance Directives: No Advance Directives Information Provided: Yes Physical Exam Vital Signs: Vital Signs: Last Vital Signs Temp 97.8 F 10/16/22 07:49 Pulse 61 10/16/22 07:49 Resp 13 10/16/22 07:49 BP 147/79 H 10/16/22 07:49 Pulse Ox 98 10/16/22 07:49 O2 Del Method 10/16/22 07:49 BMI result Body Mass Index 33.0 Neurological exam: CN II- XII tested. Patient is alert and oriented to person place and time. Patient has no dysphagia or dysarthia, denies good vision in all four vision davis no nystagmus on exam, good strength to upper and lower extremities with normal reflexes to brachioradialis, wrist, patella and achilles. Negative romberg, good finger to nose and heel to weeks. General: Well-appearing well-nourished in no signs of distress HEENT: Normocephalic atraumatic Neck: No signs of JVD, no masses no tenderness or lymphadenopathy Cardiovascular: Regular rate and rhythm Respiratory: Clear to auscultation bilaterally Abdomen: Soft nontender no masses Extremities: Normal pedal pulses no signs of edema Skin: Dry warm no rashes Back: No tenderness full ROM Medications Administered Discontinued Medications Generic Name Dose Route Start Last Admin Trade Name Freq PRN Reason Stop Dose Admin Al Hydroxide/Mg Hydroxide 30 ml 10/16/22 07:33 10/16/22 08:09 Magnesium Hydrox/Alum Hydrox 30 Ml Oral.Susp PO 10/16/22 07:34 30 ml ONCE ONE Administration Famotidine 20 mg 10/16/22 07:33 10/16/22 08:10 Famotidine/Pf 20 Mg/2 Ml Vial IVPUSH 10/16/22 07:34 20 mg ONCE ONE Administration Sodium Chloride 1,000 mls @ 999 mls/hr 10/16/22 07:45 10/16/22 09:15 Ns IV 10/16/22 08:45 Infused .Q1H1M LAURA Infusion Ketorolac Tromethamine 15 mg 10/16/22 07:33 10/16/22 08:10 Ketorolac Tromethamine 15 Mg/Ml Vial IVPUSH 10/16/22 07:34 15 mg ONCE ONE Administration Medical Decision Making Medical Decision Making [facility] Narrative: Patient unfortunately waited in the department for over 9 hours prior to being seen patient did have some blood work done but not the recent blood work I had on liver function tests and lipase to workup she has no signs of dehydration I will give patient fluids Toradol Pepcid and Maalox to see if things get the patient feeling better. Labs are all normal patient sleeping after medications feels much better. I will send home. Has follow up with GI. Differential Diagnosis Differential Diagnoses: The differential diagnosis associated with the presentation includes Dehydration is soft vagina S hepatitis chronic issue and I will make sure there is no other concerns on the patient. Lab Data 10/15/22 22:38 10/15/22 22:38 Labs: Lab Results 10/15/22 10/15/22 10/15/22 Range/Units 22:38 22:38 22:38 WBC 10.1 (4.8-10.8) X10*3/uL RBC 4.50 (4.20-5.50) X10*6/uL Hgb 12.6 (12.0-16.0) g/dl Hct 39.3 (37.0-47.0) % MCV 87.3 (80.0-98.0) fL MCH 28.0 (27.0-33.0) pg MCHC 32.1 (31.0-35.0) g/dl RDW 13.9 (11.0-16.0) % Plt Count 312 (160-400) X10*3/uL MPV 8.8 L (9.4-12.3) fL Absolute Nucleated RBC 0.000 (0.0-0.012) X10*3/uL Nucleated RBC % (auto) 0.0 (0.0-0.2) /100WBC Sodium 142 (135-145) mmol/L Potassium 3.7 (3.3-5.1) mmol/L Chloride 107 (96-108) mmol/L Carbon Dioxide 26 (22-29) mmol/L Anion Gap 13 (12-20) BUN 15 (9-16) mg/dL Creatinine 0.78 (0.5-1.4) mg/dL Estim Creat Clear Calc 93.3 Estimated GFR > 60 Random Glucose 113 (60-115) mg/dL Calcium 9.4 (8.4-10.2) mg/dL Total Bilirubin 0.7 (0.0-1.0) mg/dL Direct Bilirubin 0.2 (0.0-0.5) mg/dL AST 15 (5-31) U/L ALT 17 (0-31) U/L Alkaline Phosphatase 86 (39-117) U/L Troponin I High Sens < 3.5 (<3.5-17.0) ng/L Total Protein 6.6 (6.5-8.0) g/dL Albumin 4.1 (3.5-5.0) g/dL Lipase 42 (8-78) U/L Discharge Plan Discharge Clinical Impression: Painful swallowing, Headache Patient Disposition: Home, Self-Care Instructions: Acute Headache (ED), Dysphagia (ED) Additional Instructions: Please call to followup. Prescriptions: New metoclopramide HCl [Reglan] 10 mg tablet 10 mg PO Q6H PRN (Reason: nausea and vomiting) Qty: 30 0RF No Action levothyroxine 125 mcg tablet 125 mcg PO DAILY Qty: 30 5RF cyclobenzaprine 10 mg tablet 10 mg PO TID PRN (Reason: muscle spasm) Qty: 14 0RF hydrocodone-acetaminophen 5-325 mg tablet 1 tab PO Q6H PRN (Reason: pain) Qty: 4 0RF peg 3350-electrolytes [Golytely] 236-22.74-6.74 -5.86 gram recon soln 240 ml PO Q10M Qty: 4000 0RF Rx Instructions: as per split prep instructions, until fecal effluent is clear lisinopril 20 mg tablet 20 mg PO DAILY cholecalciferol (vitamin D3) 25 mcg (1,000 unit) tablet 25 mcg PO DAILY cyanocobalamin (vitamin B-12) 1,000 mcg tablet 1,000 mcg PO DAILY omeprazole 40 mg capsule,delayed release(DR/EC) 40 mg PO QPM amlodipine 5 mg tablet 5 mg PO DAILY atorvastatin 10 mg tablet 10 mg PO DAILY
[2022-10-16 07:25] LABS: Alanine Aminotransferase 17 U/L (0-31); Albumin Level 4.1 g/dL (3.5-5.0); Alkaline Phosphatase 86 U/L (39-117); Aspartate Amino Transferase 15 U/L (5-31); Bilirubin Direct 0.2 mg/dL (0.0-0.5); Bilirubin Total 0.7 mg/dL (0.0-1.0); Lipase 42 U/L (8-78); Total Protein 6.6 g/dL (6.5-8.0)
[2022-10-16 07:49] VITALS: BP 147/79; PULSE 61; RESP 13; TEMP 36.6; O2SAT 98
[2022-10-16] MEDS: 0.9 % Sodium Chloride 1,000 ML 999 ML IV (08:03)
[2022-10-16] MEDS: Magnesium Hydrox/Alum Hydrox 30 ML ORAL.SUSP PO (08:09)
[2022-10-16] MEDS: Ketorolac Tromethamine 15 MG/ML VIAL IVPUSH (08:10)
[2022-10-16] MEDS: Famotidine/PF 20 MG/2 ML VIAL IVPUSH (08:10)
== END 2022-10-16 09:45 | disposition home or self-care (01) ==
PROVIDERS: Emergency Provider Student in an Organized Health Care Education/Training Program; PCP Internal Medicine
DX: R13.10 Dysphagia, unspecified (principal); R51.9 Headache, unspecified; I10 Essential (primary) hypertension; R42 Dizziness and giddiness; Z79.899 Other long term (current) drug therapy
CPT/HCPCS: 36415; 80048; 80076; 83690; 84484; 85027; 96361; 96374; 96375; 99284; J1885

== ENCOUNTER 2022-10-27 13:38 | Emergency (ER) | payer MEDICAID, SELFPAY ==
--- NOTE | ~2022-10-27 | XR_ITS ---
EXAMINATION: XR CHEST CLINICAL INFORMATION: Right upper chest wall pain. COMPARISON: 10/24/2021 chest radiograph. TECHNIQUE: 2 views of the chest were obtained. FINDINGS: No significant abnormality is noted involving the heart, lungs, mediastinum, bony thorax or soft tissues. XR/XR chest 2V IMPRESSION: No acute cardiopulmonary process. No overt chest wall abnormality or change.
--- NOTE | ~2022-10-27 | XR_ITS ---
EXAMINATION: XR ABDOMEN KUB CLINICAL INDICATION: Constipation COMPARISON: 09/04/2018 TECHNIQUE: AP view of the abdomen. FINDINGS: Nonobstructive bowel gas pattern. No dilated loops of bowel. Gas and stool throughout the colon with moderate colonic stool burden. The lung bases are clear. No acute osseous abnormality. No suspicious calcifications. Multiple pelvic phleboliths. XR/XR KUB IMPRESSION: Moderate colonic stool burden.
--- NOTE | 2022-10-27 13:42 | ED_ITS ---
HPI - Back Pain/Injury General Chief Complaint: Back Pain/Injury <Magi Stephens CNP - Last Filed: 10/27/22 13:46> Stated Complaint: Back pain/R leg pain <Magi Stephens CNP - Last Filed: 10/27/22 13:46> Time Seen by Provider: 10/27/22 14:27 <Magi Stephens CNP - Last Filed: 10/27/22 13:46> Source: patient <LAUREN Ruiz - Last Filed: 10/27/22 18:28> Mode of arrival: ambulatory <LAUREN Ruiz Last Filed: 10/27/22 18:28> History of Present Illness HPI Narrative: 57-year-old female with a past medical history of asthma, bradycardia, HTN, HLD, hypothyroid, presenting to the ED complaining of right-sided back pain and RLE pain x last night. Reports intermittent paresthesias down RLE. Also reports acute on chronic constipation, last BM 6 days ago, is still passing flatus. Also reports dark colored urine. Denies fever, chills, SOB/CP, dysuria/hematuria numb, urinary incontinence/retention <LAUREN Ruiz Last Filed: 10/27/22 18:28> MD elicited complaint: back pain <LAUREN Ruiz Last Filed: 10/27/22 18:28> Onset (ago): day(s) <LAUREN Ruiz Last Filed: 10/27/22 18:28> Related Data Home Medications: Home Medications Medication Instructions Recorded Confirmed amlodipine 5 mg tablet 5 mg PO DAILY 03/10/22 atorvastatin 10 mg tablet 10 mg PO DAILY 03/10/22 cholecalciferol (vitamin D3) 25 25 mcg PO DAILY 03/10/22 mcg (1,000 unit) tablet cyanocobalamin (vitamin B-12) 1,000 mcg PO DAILY 03/10/22 1,000 mcg tablet lisinopril 20 mg tablet 20 mg PO DAILY 03/10/22 omeprazole 40 mg capsule,delayed 40 mg PO QPM 03/10/22 release Previous Rx's Medication Instructions Recorded cyclobenzaprine 10 mg tablet 10 mg PO TID PRN muscle spasm #14 10/24/21 tabs hydrocodone 5 mg-acetaminophen 325 1 tab PO Q6H PRN pain #4 tabs 10/24/21 mg tablet levothyroxine 125 mcg tablet 125 mcg PO DAILY #30 tabs 09/07/22 peg 3350-electrolytes 236 240 ml PO Q10M colonoscopy #4,000 09/22/22 gram-22.74 gram-6.74 gram-5.86 mL gram solution (Golytely) metoclopramide HCl 10 mg tablet 10 mg PO Q6H PRN nausea and 10/16/22 (Reglan) vomiting #30 tabs <Magi Stephens CNP - Last Filed: 10/27/22 13:46> Allergies/Adverse Reactions: Allergies Allergy/AdvReac Type Severity Reaction Status Date / Time codeine [CODEINE] AdvReac Unknown TACHYCARDIA Verified 10/15/22 22:04 Codeine Phosphate Allergy Unknown Unknown Uncoded 10/15/22 22:04 <Magi Stephens CNP - Last Filed: 10/27/22 13:46> Review of Systems Review of Systems: Constitutional: No Fever, No Chills ENT/Mouth: No Ear Pain, No Nasal Congestion, No Sinus Pain, No Hoarseness, No sore throat Cardiovascular: No Chest Pain, No SOB Respiratory: No Cough, No Sputum Gastrointestinal: No Nausea, No Vomiting, No Diarrhea, + Constipation, No Abdominal pain Genitourinary: No Dysuria, +dark urine, No Urinary Frequency, No Hematuria, No Urinary Incontinence/retention, No Flank Pain Musculoskeletal: +joint pain, No Myalgias, No Joint Swelling Skin: No Skin Lesions, No rash Neuro: No Weakness, No Numbness, + Paresthesias <LAUREN Ruiz - Last Filed: 10/27/22 18:28> Yes all other systems are reviewed and are negative <LAUREN Ruiz Last Filed: 10/27/22 18:28> Constitutional: Constitutional: Reports as per HPI <LAUREN Ruiz - Last Filed: 10/27/22 18:28> [facility] Past Medical History Attestation statement: The following information was validated with the patient. <LAUREN Ruiz Last Filed: 10/27/22 18:28> Medical History: Medical History Asthma Bradycardia HTN (hypertension) Hyperlipidemia Hypothyroidism Hypothyroidism <Magi Stephens CNP - Last Filed: 10/27/22 13:46> Surgical History: Surgical History History of left cataract surgery History of right cataract surgery History of tubal ligation <Magi Stephens CNP - Last Filed: 10/27/22 13:46> Family History Family History: Family History Mother AD (Alzheimer's disease) Father Kidney disease <Magi Stephens CNP - Last Filed: 10/27/22 13:46> Social History Social History: Social History Alcohol intake: never Patient Tobacco Use Status: Former Tobacco user Advance Directives: No Advance Directives Information Provided: Yes <Magi Stephens CNP - Last Filed: 10/27/22 13:46> Physical Exam Vital Signs: Vital Signs: Last Vital Signs Temp 97.6 F 10/27/22 15:40 Pulse 65 10/27/22 15:40 Resp 18 10/27/22 15:40 BP 138/67 10/27/22 15:40 Pulse Ox 98 10/27/22 15:40 O2 Del Method 10/27/22 15:40 BMI result Body Mass Index 33.2 <Magi Stephens CNP - Last Filed: 10/27/22 13:46> Vital Signs: Last Vital Signs Temp 97.6 F 10/27/22 15:40 Pulse 65 10/27/22 15:40 Resp 18 10/27/22 15:40 BP 138/67 10/27/22 15:40 Pulse Ox 98 10/27/22 15:40 O2 Del Method 10/27/22 15:40 BMI result Body Mass Index 33.2 <LAUREN Ruiz - Last Filed: 10/27/22 18:28> Const: General: cooperative, healthy appearing, comfortable and no acute distress <LAUREN Ruiz - Last Filed: 10/27/22 18:28> Orientation/consciousness: patient oriented x3 <LAUREN Ruiz - Last Filed: 10/27/22 18:28> Limitations: no limitations <LAUREN Ruiz - Last Filed: 10/27/22 18:28> HEENT: Head: Yes normal to inspection and Yes atraumatic <LAUREN Ruiz - Last Filed: 10/27/22 18:28> Ears: hearing grossly normal bilaterally <LAUREN Ruiz - Last Filed: 10/27/22 18:28> General nose exam: Normal external nose present <LAUREN Ruiz - Last Filed: 10/27/22 18:28> Face and sinus: Yes normal facial exam <LAUREN Ruiz - Last Filed: 10/27/22 18:28> Eyes: General: appearance normal, both eyes and all related structures <LAUREN Ruiz - Last Filed: 10/27/22 18:28> EOM: EOMs intact bilaterally <LAUREN Ruiz - Last Filed: 10/27/22 18:28> Neck: Neck: Yes normal visual inspection and Yes no meningeal signs <LAUREN Ruiz - Last Filed: 10/27/22 18:28> Chest: Chest palpation & inspection: normal inspection of the chest, no crepitus and no tenderness <LAUREN Ruiz - Last Filed: 10/27/22 18:28> Resp: Effort & Inspection: normal respiratory effort and no respiratory distress <LAUREN Ruiz - Last Filed: 10/27/22 18:28> Auscultation: clear to auscultation bilaterally, no crackles, no rales and no rhonchi <LAUREN Ruiz - Last Filed: 10/27/22 18:28> Cardio: Rate: regular rate <LAUREN Ruiz - Last Filed: 10/27/22 18:28> Heart sounds: S1 normal heart sound present and S2 normal heart sound present <LAUREN Ruiz - Last Filed: 10/27/22 18:28> GI: Inspection: Yes normal to inspection <LAUREN Ruiz - Last Filed: 10/27/22 18:28> Palpation (GI): Soft to palpation, nontender, no guarding and not rigid < LAUREN Ruiz - Last Filed: 10/27/22 18:28> : General: Yes no CVA tenderness <LAUREN Ruiz - Last Filed: 10/27 18:28> Back/Spine/Pelvis: Other: No midline thoracic/lumbar spinous tenderness/step-off or deformity. + right- sided midthoracic MSK tenderness to palpation reproducing subjective complaint. No erythema/ecchymosis, no flail chest. <Barbra Ward PA - Last Filed: 10/27/22 18:28> Back: no CVA tenderness <LAUREN Ruiz - Last Filed: 10/27/22 18:28> Skin: Rashes: no rashes <LAUREN Ruiz - Last Filed: 10/27/22 18:28> Wounds: no wounds <LAUREN Ruiz - Last Filed: 10/27/22 18:28> Neuro: Other: Strength intact throughout. No saddle anesthesia. Sensation intact to light touch. Neurovascular intact distally <LAUREN Ruiz - Last Filed: 10/27/22 18:28> General: patient oriented x3, gait normal, tone normal, moves all extremities, no meningeal signs and no focal motor deficits <LAUREN Ruiz - Last Filed: 10/27/22 18:28> Gait exam (Neuro): Normal gait present <LAUREN Ruiz - Last Filed: 10/27/22 18:28> Extrem: General: Yes normal to inspection <LAUREN Ruiz - Last Filed: 10/27/22 18:28> Course Course Course Narrative: This is an RME: Additional HPI, ROS, PE not included below will be deferred to primary provider. Patient is a 57-year-old female who presents emergency department for atraumatic right back/leg pain. Reports onset of symptoms to be last night. Denies dysuria, but states odorous cloudy urine, with frequency. Denies bladder bowel dysfunction. Took Tylenol without any improvement. Denies any history of similar pain in the past. Plan: urinalysis <Magi Setphens CNP - Last Filed: 10/27/22 13:46> This is an RME: Additional HPI, ROS, PE not included below will be d eferred to primary provider. Patient is a 57-year-old female who presents emergency department for atraumatic right back/leg pain. Reports onset of symptoms to be last night. Denies dysuria, but states odorous cloudy urine, with frequency. Denies bladder bowel dysfunction. Took Tylenol without any improvement. Denies any history of similar pain in the past. Plan: urinalysis XR chest 2V IMPRESSION: No acute cardiopulmonary process. No overt chest wall abnormality or change. XR KUB IMPRESSION: Moderate colonic stool burden. >> UA infected. Will discharge patient with p.o. Ceftin. Results discussed with patient with educational sign language interpreter, 1st dose given in the ED <LAUREN Ruiz - Last Filed: 10/27/22 18:28> Medications Administered Discontinued Medications Generic Name Dose Route Start Last Admin Trade Name Freq PRN Reason Stop Dose Admin Polyethylene Glycol 17 gm 10/27/22 16:58 10/27/22 17:24 Polyethylene Glycol 3350 17 Gm Powd.Pack PO 10/27/22 16:59 17 gm ONCE ONE Administration <Magi Stephens CNP - Last Filed: 10/27/22 13:46> Medications Administered Discontinued Medications Generic Name Dose Route Start Last Admin Trade Name Freq PRN Reason Stop Dose Admin Polyethylene Glycol 17 gm 10/27/22 16:58 10/27/22 17:24 Polyethylene Glycol 3350 17 Gm Powd.Pack PO 10/27/22 16:59 17 gm ONCE ONE Administration <LAUREN Ruiz - Last Filed: 10/27/22 18:28> Medical Decision Making Medical Decision Making MDM Narrative: 57-year-old female with a past medical history of asthma, bradycardia, HTN, HLD, hypothyroid, presenting to the ED complaining of right-sided back pain and RLE pain x last night. On exam vital signs stable, NAD, nontoxic appearing, lungs CTA, reproducible right-sided back pain on exam, no CVAT, abdomen soft nontender, no red flag symptoms. Concern for MSK back pain/strain vs ?pyelo/UTI vs constipation or SBO vs sciatica. Lower suspicion for pneumonia/PE, ACS, cholecystitis/lithiasis, cauda equina Plan: CXR, KUB, UA Please refer to course for remaining clinical decision making, interpretation of labs/imaging results, and discussions with consultants and/or family members. <LAUREN Ruiz - Last Filed: 10/27/22 18:28> Differential Diagnosis Differential Diagnoses: The differential diagnosis associated with the presentation includes <LAUREN Ruiz - Last Filed: 10/27/22 18:28> as above <LAUREN Ruiz - Last Filed: 10/27/22 18:28> Admission/Observation Consideration of admission/observation: Escalation of care including admission/observation considered <LAUREN Ruiz - Last Filed: 10/27/22 18:28> Lab Data MDM Lab Attestation statement: I reviewed the patient's lab results. <LAUREN Ruiz - Last Filed: 10/27/22 18:28> Labs: Lab Results 10/27/22 Range/Units 16:58 Urine Color Yellow Urine Appearance Cloudy Urine pH 5.0 (5.0-9.0) Ur Specific [place] 1.020 (1.005-1.025) Urine Protein Negative (Neg-Trace) mg/dL Urine Glucose (UA) Negative (Negative) mg/dL Urine Ketones Negative (Negative) mg/dL Urine Blood Negative (Negative) Urine Nitrite Positive H (Negative) Ur Leukocyte Esterase Small (1+) H (Negative) Urine RBC 0-2 (0-2) /HPF Urine WBC 6-10 H (0-5) /HPF Ur Squamous Epith Cells 3-5 (0-2) /HPF Urine Bacteria 4+ (None Seen) Hyaline Casts 0-2 (0-2) /LPF <Magi Stephens CNP - Last Filed: 10/27/22 13:46> Lab Results 10/27/22 Range/Units 16:58 Urine Color Yellow Urine Appearance Cloudy Urine pH 5.0 (5.0-9.0) Ur Specific [place] 1.020 (1.005-1.025) Urine Protein Negative (Neg-Trace) mg/dL Urine Glucose (UA) Negative (Negative) mg/dL Urine Ketones Negative (Negative) mg/dL Urine Blood Negative (Negative) Urine Nitrite Positive H (Negative) Ur Leukocyte Esterase Small (1+) H (Negative) Urine RBC 0-2 (0-2) /HPF Urine WBC 6-10 H (0-5) /HPF Ur Squamous Epith Cells 3-5 (0-2) /HPF Urine Bacteria 4+ (None Seen) Hyaline Casts 0-2 (0-2) /LPF <LAUREN Ruiz - Last Filed: 10/27/22 18:28> Radiology Impression Discussion of test interpretation with radiology: I have reviewed the radiologist's reading. <LAUREN Ruiz - Last Filed: 10/27/22 18:28> External Record Review External record reviewed: Office record, Outpatient record, Prior outpatient labs, Prior outpatient radiology and Primary care record <LAUREN Ruiz - Last Filed: 10/27/22 18:28> Prescription Management I considered prescription management with: Pain Medication <LAUREN Ruiz - Last Filed: 10/27/22 18:28> Discharge Plan Discharge Clinical Impression: Constipation <Magi Stephens CNP - Last Filed: 10/27/22 13:46> Patient Disposition: Home, Self-Care <Magi Stephens CNP - Last Filed: 10/27/22 13:46> Prescriptions: No Action levothyroxine 125 mcg tablet 125 mcg PO DAILY Qty: 30 5RF cyclobenzaprine 10 mg tablet 10 mg PO TID PRN (Reason: muscle spasm) Qty: 14 0RF hydrocodone-acetaminophen 5-325 mg tablet 1 tab PO Q6H PRN (Reason: pain) Qty: 4 0RF metoclopramide HCl [Reglan] 10 mg tablet 10 mg PO Q6H PRN (Reason: nausea and vomiting) Qty: 30 0RF peg 3350-electrolytes [Golytely] 236-22.74-6.74 -5.86 gram recon soln 240 ml PO Q10M Qty: 4000 0RF Rx Instructions: as per split prep instructions, until fecal effluent is clear lisinopril 20 mg tablet 20 mg PO DAILY cholecalciferol (vitamin D3) 25 mcg (1,000 unit) tablet 25 mcg PO DAILY cyanocobalamin (vitamin B-12) 1,000 mcg tablet 1,000 mcg PO DAILY omeprazole 40 mg capsule,delayed release(DR/EC) 40 mg PO QPM amlodipine 5 mg tablet 5 mg PO DAILY atorvastatin 10 mg tablet 10 mg PO DAILY <Magi Stephens, [employer] - Last Filed: 10/27/22 13:46>
[2022-10-27 13:44] VITALS: BP 154/80; PULSE 76; RESP 18; TEMP 36.3; O2SAT 96; BMI 33.2
[2022-10-27 15:40] VITALS: BP 138/67; PULSE 65; RESP 18; TEMP 36.4; O2SAT 98
[2022-10-27 17:13] LABS: Appearance Urine Cloudy; Color Urine Yellow; Glucose Urine UA Negative (Negative); Leukocyte Esterase Urine Small (1+) (Negative); Nitrite Urine Positive (Negative); UMIC TRIGGER UACC YES; Urine Blood Negative (Negative); Urine Ketones Negative (Negative); Urine Protein Negative (Neg-Trace)
[2022-10-27] MEDS: polyethylene glycoL 3350 17 GM POWD.PACK PO (17:24)
[2022-10-27 18:17] LABS: Bacteria Urine 4+ (None Seen); Hyaline Casts Urine 0-2 /LPF (0-2); RBC Urine 0-2 /HPF (0-2); UACC Culture Trigger YES
== END 2022-10-27 18:41 | disposition home or self-care (01) ==
PROVIDERS: Nurse Practitioner Family; Emergency Provider Emergency Medicine; PCP Internal Medicine
DX: K59.00 Constipation, unspecified (principal); R07.89 Other chest pain; Z79.899 Other long term (current) drug therapy
CPT/HCPCS: 71046; 74018; 81001; 87086; 87088; 87186; 99283

== ENCOUNTER 2022-11-06 07:18 | Outpatient (REF) | payer MEDICAID, SELFPAY ==
--- NOTE | ~2022-11-06 | MM_ITS ---
EXAMINATION: MM SCREENING DIGITAL BREAST TOMOSYNTHESIS, BILATERAL CLINICAL INFORMATION: Screening. Asymptomatic. The lifetime risk of breast cancer based on the Tyrer-Cuzick Model is 6%. COMPARISON: Mammography: 10/31/2021, 03/30/2018, 03/07/2018 TECHNIQUE: Digital breast tomosynthesis is performed in both the craniocaudal and mediolateral oblique views along with computer-aided detection (CAD). Synthesized 2D images are generated from the tomosynthesis. FINDINGS: There are scattered areas of fibroglandular density (ACR BI-RADS breast composition Category b). There are no significant masses, abnormal calcifications, or other abnormalities. Parenchymal pattern is similar to prior studies. There is no developing density or architectural abnormality. The axilla and skin contours are unremarkable. No significant changes. MM/MM tomosynthesis screening BI IMPRESSION: No mammographic evidence of malignancy. ASSESSMENT: BI-RADS 1: Negative RECOMMENDATION: Routine annual mammography screening. This patient's information was entered into a reminder system with a target due date for their next mammogram.
== END 2022-11-06 07:19 | disposition home or self-care (01) ==
LOC: HO.MAMMO 07:18
PROVIDERS: PCP Internal Medicine; Visit Provider Internal Medicine
DX: Z12.31 Encounter for screening mammogram for malignant neoplasm of breast (principal)
CPT/HCPCS: 77063; 77067

== ENCOUNTER 2022-11-09 09:09 | Outpatient (REF) | payer MEDICAID, SELFPAY ==
--- NOTE | ~2022-11-09 | FL_ITS ---
EXAMINATION: FL BARIUM SWALLOW CLINICAL INFORMATION: Dysphagia. COMPARISON: None available. TECHNIQUE: Barium swallow examination is performed using fluoroscopic evaluation in addition to multiple fluoroscopic spot views. The patient is imaged both upright and prone and using both thick and thin sulfate along with effervescent granules. Fluoroscopy time: 1.1 minutes. DAP: 10.13 Gy-cm2. Images: 53. FINDINGS: Following oral administration of thick barium and barium-coated turkey in upright view, there is normal propagation of bolus from the oral cavity through the pharynx and esophagus and into the stomach without any evidence of obstruction, narrowing or extrinsic impression. On placing patient prone and oral administration of thin barium, there is good distention of the esophagus. There is a small hiatal hernia with mild gastroesophageal reflux. The mucosal pattern is normal. FL/FL barium swallow IMPRESSION: Small sliding hiatal hernia with mild reflux.
== END 2022-11-09 09:10 | disposition home or self-care (01) ==
LOC: HO.XRAY 09:09
PROVIDERS: PCP Internal Medicine; Visit Provider Internal Medicine
DX: R13.10 Dysphagia, unspecified (principal)
CPT/HCPCS: 74220

== ENCOUNTER 2022-11-26 09:01 | Day surgery (SDC) | payer MEDICAID, SELFPAY ==
[2022-11-23 11:30] VITALS: BMI 32.8
[2022-11-26 09:54] VITALS: BMI 32.5
--- NOTE | 2022-11-26 09:55 | MHC.SHP ---
Pre-Procedural Eval Section A Date of Service: 11/26/22 Section B Chief Complaint: Personal history of colonic polyps,dysphagia Details of Present Illness: PMH: Asthma Bradycardia HTN (hypertension) Hyperlipidemia Hypothyroidism Hypothyroidism Surgical History History of left cataract surgery History of right cataract surgery History of tubal ligation Relevant Social History: None Present Medications: see Short Stay Collaborative assessment Allergies: Allergies Allergy/AdvReac Type Severity Reaction Status Date / Time codeine [CODEINE] AdvReac Unknown TACHYCARDIA Verified 11/26/22 09:54 Codeine Phosphate Allergy Unknown Unknown Uncoded 10/15/22 22:04 Review of Systems Review of Systems Comment: 10 point ROS as above Exam Exam Comment: Gen appear: No acute distress HEENT: no icterus Chest: No overt resp distress Abd: soft, nontender, nondistended Psych: Stable affect, answering questions appropriately Neuro: A/Ox3 noted to move all extremities spontaneously Ext: no peripheral edema Plan Diagnosis/Plan: Unchanged I have reviewed the history and physical and performed a pertinent physical examination on my patient. No changes have occurred unless specified. Time Spent With Patient Time: Total time managing care of this patient today ____ minutes.
--- NOTE | 2022-11-26 10:31 | HO.ANESPROP2 ---
[facility] Active Problems Active Problems: All Active Problems (Updated 11/25/22 @ 09:27 by Flor Abraham RN) Painful swallowing (Acute) Dysphagia (Acute) Personal history of colonic polyps (Acute) Hypothyroidism (Acute) Past Medical History Medical History Asthma Bradycardia HTN (hypertension) Hyperlipidemia Hypothyroidism Family History Family History Mother AD (Alzheimer's disease) Father Kidney disease Surgical History Surgical History History of left cataract surgery History of loop recorder History of right cataract surgery History of tubal ligation Hx of hand surgery S/P carpal tunnel release S/P foot surgery, left S/P foot surgery, right History of Problems with Anesthesia: No Social History Social History Alcohol intake: never Patient Tobacco Use Status: Former Tobacco user Quit Date: 1 yr ago Use of substances other than those prescribed or required for medical reasons: No Are you DNR?: No Advance Directives: No Advance Directives Information Provided: Yes Meds Allergies Allergy/AdvReac Type Severity Reaction Status Date / Time codeine [CODEINE] AdvReac Unknown TACHYCARDIA Verified 11/26/22 09:54 Codeine Phosphate Allergy Unknown Unknown Uncoded 10/15/22 22:04 Home Medications Medication Instructions Recorded Confirmed Last Taken Type atorvastatin 10 mg tablet 10 mg PO DAILY 03/10/22 Unknown History cholecalciferol (vitamin D3) 25 25 mcg PO DAILY 03/10/22 Unknown History mcg (1,000 unit) tablet cyanocobalamin (vitamin B-12) 1,000 mcg PO DAILY 03/10/22 Unknown History 1,000 mcg tablet lisinopril 20 mg tablet 20 mg PO DAILY 03/10/22 Unknown History omeprazole 40 mg capsule,delayed 40 mg PO QPM 03/10/22 Unknown History release ipratropium 20 mcg-albuterol 100 inhalation 11/26/22 11/26/22 Unknown History mcg/actuation mist for inhalation (Combivent Respimat) Exam Exam Date and Time: November 26, 2022 1031 Height,Weight and Vital Signs: Height 5 ft 7 in Weight 94.347 kg Airway Mallampati Class: II TM Dist: >3cm Neck ROM: Full Heart: RRR Lungs: CTA Assessment and Plan Final Anesthetic Review History of Problems with Anesthesia: No NPO: Yes ASA Class: II Final Preanesthetic Review: Meds/Allgs Chart Reviewed, Consent Obtained/Reviewed and Anes Risks/Benef Reviewed Patient Risk: Low Procedure Risk: Low Anesthetic Plan Anesthetic Plan: MAC: Disposition: Standard PACU
[2022-11-26 10:48] VITALS: BP 139/75; PULSE 67; RESP 16; TEMP 35.9; O2SAT 97
--- NOTE | 2022-11-26 10:51 | P.OP_ITS ---
Operative Note Operative Note Date of Service: 11/26/22 Narrative: Procedure:?Esophagogastroduodenoscopy and Colonoscopy Indication:?Dysphagia, personal hx of polyps Endoscopist:?Mercy Jean-Baptiste MD Anesthesia Provider:?Dr Meghan Nuñez Anesthesia type:?MAC Instrument:?Olympus GIF-H190, PCF-H190L EGD Procedure:?? The procedure, indications, preparation and potential complications were reviewed with the patient, who indicated understanding and gave written informed consent to proceed. A physical exam was performed. A bite block was placed. The endoscope which was then introduced through the mouth, and advanced to the second part of the duodenum. The mucosa was carefully examined on slow withdrawal of the endoscope. The patient tolerated the procedure well. There were no immediate complications.? ? EGD Findings:? * Esophagus: The Z line was at 32 cm. Esophagitis with 2 linear ulcers noted at the GE junction. A non-obstructing Schatzki's ring was present. There was a medium-sized hiatal hernia with the diaphragmatic hiatus at 36 cm. * Stomach:?Normal mucosa was noted in the stomach. Retroflexion in the fundus confirmed the size and morphology of the hiatal hernia with Hill Class II. Random cold forceps biopsies were taken to rule out H pylori. * Duodenum:? There was a small duodenal polyp noted in the due duodenal sweep. Cold forceps biopsies were taken. Otherwise, normal mucosa to the extent seen.? Additional intervention: A soft tipped Savary wire was introduced through the biopsy channel and advanced to the antrum. The gastroscope was then withdrawn. A Savary Josué bougie was advanced over the wire and the esophagus was incrementally dilated from 16 mm to 18 mm with significant resistance noted at 18 mm. On relook, no heme or tear was noted. Colonoscopy Procedure:? The patient was then turned for the colonoscopy. A digital rectal exam was performed which was normal.? A distal attachment cap was affixed to the tip of the scope and the colonoscope was then inserted through the anus and advanced through the colon to the cecum at 85 cm and terminal ileum. The appendiceal orifice and ileocecal valve was identified.? Mucosa was carefully examined under high definition white light as the instrument was slowly withdrawn in a retrograde panoramic fashion.? Ascending colon was intubated twice.? Retroflexion was performed in rectum. The procedure was not difficult. There were no immediate obvious complications. The quality of the prep was BBPS: 2+2+3 = adequate Withdrawal time 9 minutes. Limitations: No limitations Colonoscopy Findings: Mucosa: Normal mucosa in colon and terminal ileum. A previous tattoo was noted at 60 cm with no residual polyp noted at that site or around it. Protruding lesions: * Medium? internal hemorrhoids without stigmata of recent bleeding. Impression:? * Grade C esophagitis * Schatzki's ring * Hiatal hernia * Normal stomach (biopsy) * Duodenal polyp (biopsy) * Normal colon (previous tattoo) and terminal ileum mucosa * Internal hemorrhoids Recommendations: * Await path results.? * Increase PPI dose for esophagitis * Repeat EGD in 8-10 weeks to ensure healing and repeat dilation as needed * Repeat colonoscopy in 5 years due to hx of advanced polyp Findings were reviewed with the patient and relevant handouts were provided.
[2022-11-26] MEDS: Lactated Ringers 1,000 ML 50 ML IVCONT (10:54)
[2022-11-26 11:55] VITALS: BP 135/77; PULSE 69; RESP 17; TEMP 36.6; O2SAT 98
[2022-11-26 12:10] VITALS: BP 144/83; PULSE 56; RESP 18; O2SAT 98
[2022-11-26 12:25] VITALS: BP 150/83; PULSE 53; RESP 18; TEMP 36.6; O2SAT 99
--- NOTE | 2022-11-26 13:21 | HO.POSTANES ---
Post Anesthesia Evaluation Post Anesthesia Evaluation Vital Signs: Vital Signs Temp Pulse Resp BP Pulse Ox O2 Del Method 11/26/22 12:25 97.8 F 53 18 150/83 H 99 Room Air 11/26/22 12:10 56 18 144/83 H 98 Room Air 11/26/22 11:55 98 F 69 17 135/77 98 Room Air 11/26/22 10:48 96.7 F L 67 16 139/75 97 Room Air Anesthesia: Monitored Mental Status: Awake Pain Control: Satisfactory Nausea/Vomiting: None Hydration: Adequate Anesthesia-Related Issues: No Anes. Related Issues
== END 2022-11-26 12:58 | disposition home or self-care (01) ==
PROVIDERS: PCP Internal Medicine; Visit Provider Internal Medicine
PROC: (CPT 45378; principal; 2022-11-26 11:30)
DX: Z12.11 Encounter for screening for malignant neoplasm of colon (principal); K64.8 Other hemorrhoids; Z86.010 Personal history of colon polyps; R13.10 Dysphagia, unspecified; K22.2 Esophageal obstruction; K20.90 Esophagitis, unspecified without bleeding; K31.7 Polyp of stomach and duodenum; K44.9 Diaphragmatic hernia without obstruction or gangrene; I10 Essential (primary) hypertension; J45.909 Unspecified asthma, uncomplicated; Z88.5 Allergy status to narcotic agent
CPT/HCPCS: 45378; 43248; 43239; 88305; 88342; C1769